=== PATIENT | female | born 1945 | race Caucasian/White ===

== ENCOUNTER 2024-07-07 13:10 | Emergency (ER) | payer MEDICARE, OTHER ==
[~2024-07-07] VITALS: Ht 160 cm; Wt 103.0 kg
[2024-07-07] MEDS: ACETAMINOPHEN 325 MG TAB PO ONE (15:05)
[2024-07-07] MEDS ORDERED: CEPHALEXIN500 MG PO (15:06)
[2024-07-07 15:19] VITALS: PULSE 74; RESP 16; TEMP 97.9; O2SAT 99
== END 2024-07-07 15:42 | disposition home or self-care (01) ==
LOC: ER 13:41
DX: M79.89 Other specified soft tissue disorders (principal); S80.12XD Contusion of left lower leg, subsequent encounter; S80.822D Blister (nonthermal), left lower leg, subsequent encounter; W18.39XD Other fall on same level, subsequent encounter; I10 Essential (primary) hypertension; E11.9 Type 2 diabetes mellitus without complications; I48.91 Unspecified atrial fibrillation; F41.9 Anxiety disorder, unspecified; F32.A Depression, unspecified; Z85.42 Personal history of malignant neoplasm of other parts of uterus
CPT/HCPCS: 99283